=== PATIENT | male | born 1955 | race African-American/Black ===

== ENCOUNTER 2024-11-19 15:21 | Emergency (ER) | payer MEDICARE, MEDICAID ==
[~2024-11-19] VITALS: Ht 185.4 cm; Wt 118.0 kg
[2024-11-19 15:41] VITALS: O2SAT 100
[2024-11-19] MEDS: ACETAMINOPHEN 325MG TABLET PO ONE (19:46)
[2024-11-19] MEDS: IBUPROFEN 400MG TABLET PO ONE (19:46)
[2024-11-19] MEDS ORDERED: LIDO700A15 TP (19:55)
[2024-11-19] MEDS ORDERED: IBUP-2028 MT (19:55)
[2024-11-19] MEDS ORDERED: METH-653 MT (19:55)
[2024-11-19] MEDS ORDERED: TOPUD PO (19:55)
[2024-11-19 20:05] VITALS: BP 134/88; PULSE 82; RESP 18; TEMP 37; O2SAT 100
== END 2024-11-19 20:06 | disposition home or self-care (01) ==
LOC: ER 15:21
DX: S13.4XXA Sprain of ligaments of cervical spine, initial encounter (principal); V89.2XXA Person injured in unspecified motor-vehicle accident, traffic, initial encounter; J44.9 Chronic obstructive pulmonary disease, unspecified; I10 Essential (primary) hypertension; Z79.899 Other long term (current) drug therapy; Y93.89 Activity, other specified; Y92.89 Other specified places as the place of occurrence of the external cause; Y99.8 Other external cause status
CPT/HCPCS: 72040; 72100; 99284